=== PATIENT | female | born 1955 | race Caucasian/White ===

== ENCOUNTER 2018-02-09 06:08 | Day surgery (SDC) | payer OTHER ==
[~2018-02-09] VITALS: Ht 167.6 cm; Wt 114.0 kg
[~2018-02-09 06:08] MED LIST: CO Q10 PO; DIPH25CA61 PO; FENO54TA17 PO; FISH OIL PO; MELA1TAB8 PO; MULT-516 PO; SIMV40TA3 PO
[2018-02-09] MEDS ORDERED: LACTATED RINGERS 1,000 ML IV SCH (06:48)
[2018-02-09] MEDS ORDERED: EPINEPHRINE 1 MG/ML, 1ML ONE (06:49)
[2018-02-09] MEDS ORDERED: BUPIVACAINE/PF 0.5% ONE (06:49)
[2018-02-09] MEDS ORDERED: METF500T4 PO (06:51)
[2018-02-09] MEDS ORDERED: ASPI-496 PO (06:51)
[2018-02-09] MEDS ORDERED: LIDOCAINE-MPF 1%, 2ML INFIL ONE (07:00)
[2018-02-09 07:14] VITALS: BP 129/84
[2018-02-09 07:35] LABS: ALBUMIN 4.2 g/dL (3.4-5.0); ANION GAP 6 mmol/L (5-15); CALCIUM 9.3 mg/dL (8.5-10.1); CHLORIDE 110 mmol/L (98-107)
[2018-02-09 07:41] LABS: ALANINE AMINOTRANSFERASE 55 U/L (12-78); ALKALINE PHOSPHATASE 73 U/L (45-117); BILIRUBIN,TOTAL 0.9 mg/dL (0.2-1.0); CREATININE 0.88 mg/dL (0.55-1.02); TOTAL PROTEIN 7.5 g/dL (6.4-8.2)
[2018-02-09] MEDS ORDERED: FENTANYL PF 100 MCG/2ML ONE (07:43)
[2018-02-09] MEDS ORDERED: MIDAZOLAM 1 MG/ML, 2ML ONE (07:43)
[2018-02-09] MEDS ORDERED: PROPOFOL 10 MG/ML, 20ML ONE (07:44)
[2018-02-09] MEDS ORDERED: CEFAZOLIN 1,000 MG ONE ×2 (07:51)
[2018-02-09] MEDS ORDERED: SODIUM CHLORIDE 0.9% PF 10ML ONE (07:51)
[2018-02-09] MEDS ORDERED: ONDANSETRON 2MG/ML, 2ML IVPush PRN (08:30)
[2018-02-09] MEDS ORDERED: PROMETHAZINE 12.5 MG SUPP PR PRN (08:30)
[2018-02-09] MEDS ORDERED: PROMETHAZINE 25 MG/ML, 1ML IV PRN (08:30)
[2018-02-09] MEDS ORDERED: HYDROmorphone 1 MG/ML, 1ML IV PRN (08:30)
[2018-02-09] MEDS ORDERED: ACETAMINOPHEN 325 MG TABLET PO PRN (08:30)
[2018-02-09] MEDS ORDERED: FENTANYL PF 100 MCG/2ML IV PRN (08:30)
[2018-02-09] MEDS ORDERED: MEPERIDINE/PF 25MG/0.5ML IVPush PRN (08:30)
[2018-02-09] MEDS ORDERED: morphine SULFATE 10 MG/ML, 1ML IV PRN (08:30)
[2018-02-09] MEDS ORDERED: hydrALAzine 20 MG/ML, 1ML IV PRN (08:30)
[2018-02-09] MEDS ORDERED: OXYcodone 5 MG/5 ML ORAL.SOL UDC PO PRN (08:30)
[2018-02-09] MEDS ORDERED: KETOROLAC 30 MG/1 ML IV PRN (08:30)
[2018-02-09] MEDS ORDERED: LABETALOL 5MG/ML, 20ML IV PRN (08:30)
[2018-02-09] MEDS ORDERED: NEOSTIGMINE 1 MG/ML, 10ML ONE (08:39)
[2018-02-09] MEDS ORDERED: GLYCOPYRROLATE 0.4 MG/2 ML, 2ML ONE (08:39)
[2018-02-09] MEDS ORDERED: ROCURONIUM 10 MG/ML,10ML ONE (08:39)
[2018-02-09] MEDS ORDERED: ONDANSETRON 2MG/ML, 2ML ONE (08:40)
[2018-02-09] MEDS ORDERED: DEXAMETHASONE 4 MG/ML, 1ML ONE ×2 (08:40)
[2018-02-09] MEDS ORDERED: ACETAMINOPHEN 650 MG/20.3 ML UDC ONE (10:02)
[2018-02-09] MEDS ORDERED: OXYcodone 5 MG/5 ML ORAL.SOL UDC ONE (10:02)
== END 2018-02-09 11:30 ==
LOC: OUT 06:08
PROVIDERS: ATTEND Surgery Vascular Surgery
DX: L72.3 Sebaceous cyst (principal); E11.9 Type 2 diabetes mellitus without complications; E78.5 Hyperlipidemia, unspecified; E66.9 Obesity, unspecified; Z68.41 Body mass index [BMI] 40.0-44.9, adult
CPT/HCPCS: 11402; 36415; 80053; 88304; 93005; J0171; J0690; J2250; J2405; J2704; J2710; J3010; J3490; J7120; 88305; J1100